=== PATIENT | male | born 1975 | race American Indian/Alaskan Native ===

== ENCOUNTER 2019-06-01 03:16 | Emergency (ER) | payer SELFPAY ==
[2019-06-01] MEDS ORDERED: PEPCID IV ONE (03:25)
[2019-06-01] MEDS ORDERED: NACL 0.9% 1000 ML 1,000 ML IV ONE (03:25)
[2019-06-01] MEDS ORDERED: BENTYL IM ONE (03:25)
[2019-06-01] MEDS ORDERED: ZOFRAN IV ONE (03:25)
--- NOTE | 2019-06-01 05:06 | Emergency Department Report ---
Vomiting/Diarrhea - HPI Chief Complaint: Abdominal Pain Stated Complaint: WITHDRAWALS Time Seen by Provider: 06/01/19 03:25 Duration: Today Severity: moderate Nausea/Vomiting Severity: Moderate Diarrhea Severity: None Pain Location: Epigastric Pain Severity: Mild Other History: Patient's has a history of heroin and methadone abuse but stopped using both''' 2 days ago and attempted to go cold turkey. Patient is now having uncontrolled nausea and vomiting. ED Review of Systems ROS: Stated complaint: WITHDRAWALS Other details as noted in HPI Comment: All other systems reviewed and negative ED Past Medical Hx - Past Medical History Previous Medical History?: Yes Hx Asthma: Yes - Social History Smoking Status: Current Every Day Smoker - Medications Home Medications: Home Medications Medication Instructions Recorded Confirmed Last Taken Type Ondansetron [Zofran Odt] 4 mg PO Q8HR #10 tab.rapdis 06/01/19 Unknown Rx cloNIDine [Catapres] 0.1 mg PO BID #6 tablet 06/01/19 Unknown Rx Vomiting Diarrhea Exam - Exam General: Vital signs noted. No distress. Alert and acting appropriately. HEENT: Yes Moist Mucous Membranes, No Pharyngeal Erythema, No Pharyngeal Exudates, No Rhinorrhea, No Conjuctival Injection, No Frontal Tenderness, No Maxillary Tenderness Neck: No Adenopathy, No Rigidity Lungs: Yes Clear Lung Sounds, Yes Good Air Exchange, No Wheezes, No Stridor, No Cough, No Nasal Flaring, No Retractions, No Use of Accessory Muscles Heart exam: Regular: Yes, Murmur: No, Tachycardia: No Abdomen: Tenderness: No, Peritoneal Signs: No, Distention: No, Hyperactive Bowel sounds: No Skin exam: Rash: No, Edema: No, Normal turgor: Yes Neurologic: Alert and oriented, no deficits. Musculoskeletal: Unremarkable. ED Course Vital Signs 06/01/19 03:24 Temperature 97.7 F Pulse Rate 71 Respiratory 18 Rate Blood Pressure 146/92 O2 Sat by Pulse 97 Oximetry ED Medical Decision Making - Medical Decision Making Patient hydrated and given Zofran. Nausea vomiting has improved. Patient discharged home with Zofran and Catapres. Critical care attestation.: If time is entered above; I have spent that time in minutes in the direct care of this critically ill patient, excluding procedure time. ED Disposition Clinical Impression: Opiate withdrawal Disposition: DC-01 TO HOME OR SELFCARE Is pt being admited?: No Does the pt Need Aspirin: No Condition: Stable Instructions: Opioid Withdrawal (ED) Referrals: DR. KATHI [Other] - 3-5 Days Time of Disposition: 05:06
[2019-06-01 05:37] VITALS: BP 135/74
== END 2019-06-01 05:37 | disposition home or self-care (01) ==
LOC: ED 03:16
DX: F11.23 Opioid dependence with withdrawal (principal); F17.200 Nicotine dependence, unspecified, uncomplicated; J45.909 Unspecified asthma, uncomplicated
CPT/HCPCS: 96372; 96374; 96375; 99283; J0500; J2405; J7030